=== PATIENT | female | born 1975 | race Caucasian/White ===

== ENCOUNTER 2023-11-06 23:48 | Emergency (ER) | payer OTHER ==
[~2023-11-06] VITALS: Ht 165.1 cm; Wt 70.0 kg
[~2023-11-06 23:48] MED LIST: NITR-87 MT; cogentin; gabapentin; haldol
[2023-11-06 23:54] VITALS: TEMP 98.6; O2SAT 100
[2023-11-07] MEDS ORDERED: IBUP-2028 MT (00:48)
[2023-11-07] MEDS ORDERED: CETI10CA11 MT (00:48)
[2023-11-07] MEDS ORDERED: HYDR453.4 TP (00:48)
[2023-11-07] MEDS ORDERED: TOPUD MT (00:48)
[2023-11-07 01:23] VITALS: BP 116/61; PULSE 99; RESP 16
[2023-11-07] MEDS: KETOROLAC 60MG/2ML VIAL IM ONE (01:23)
[2023-11-07] MEDS: DIPHENHYDRAMINE 25MG CAPSULE PO ONE (01:24)
== END 2023-11-07 01:27 | disposition home or self-care (01) ==
LOC: ER 23:48
DX: R21 Rash and other nonspecific skin eruption (principal); F41.9 Anxiety disorder, unspecified; Z98.890 Other specified postprocedural states; F12.90 Cannabis use, unspecified, uncomplicated; F15.90 Other stimulant use, unspecified, uncomplicated; F19.90 Other psychoactive substance use, unspecified, uncomplicated
CPT/HCPCS: 99283; 96372; Q0163; J1885; Z7610